=== PATIENT | female | born 1990 | race Hispanic/Latino ===

== ENCOUNTER 2016-10-08 00:47 | Emergency (ER) | payer SELFPAY ==
[2016-10-08] MEDS ORDERED: Valium 5 MG PO ONE (00:57)
[2016-10-08] MEDS ORDERED: TORAdol 30 mg Injection IM ONE (00:57)
--- NOTE | 2016-10-08 01:04 | ERPHSYRPT ---
- History of Present Illness Time Seen by Provider: 10/08/16 00:49 Source: patient, family Exam Limitations: language barrier Physician History: patient presents with "toothache" and cant open mouth due to pain left TMJ; no hx of trauma; no difficulty swallowing or breathing; no fever; no prior hx; no pain with clenching teeth only when tries to open; also noted two small lumps right breast; no traum; not breast feeding; no d/d Timing/Duration: gradual onset, this evening (worse), yesterday (onset) Severity: moderate ENT Location: facial (left TMJ) Prearrival Treatment: no prearrival treatment Modifying Factors: Improves With: other (opening mouth exacerbates) Associated Symptoms: jaw pain (left TMJ) - Review of Systems Constitutional: No Symptoms Eyes: No Symptoms Ears, Nose, & Throat: Other (pain left TMJ if tries opening mouth), No Ear Pain , No Hearing Changes, No Tinnitus, No Nose Pain, No Epistaxis, No Mouth Pain, No Mouth Swelling, No Loose Teeth, No Throat Pain, No Painful Swallowing Respiratory: No Cough, No Dyspnea, No Wheezing Cardiac: No Chest Pain, No Palpitations, No Syncope Abdominal/Gastrointestinal: No Abdominal Pain, No Nausea, No Vomiting, No Diarrhea Genitourinary Symptoms: No Symptoms Musculoskeletal: Joint Pain (left TMJ), Other (lumps right breast x 2), No Injury, No Joint Redness Skin: No Symptoms Neurological: No Symptoms Psychological: No Symptoms - Past Medical History Pertinent Past Medical History: No - Past Surgical History Past Surgical History: No - Social History Smoking Status: Never smoker Exposure to second hand smoke: No Alcohol Use: None Drug Use: none Patient Lives Alone: No Significant Family History: no pertinent family hx - Female History Hx Now: No - Nursing Vital Signs Nursing Vital Signs: Initial Vital Signs Temperature 98 F Temperature Source Oral Pulse Rate 84 Respiratory Rate 16 Blood Pressure [Right Arm] 120/78 Pain Intensity 6 - Physical Exam General Appearance: mild distress (pain lleft tMJ), alert Eye Exam: bilateral eye: normal inspection, PERRL, EOMI Ear Exam: bilateral ear: auricle normal, canal normal, TM normal Nasal Exam: normal inspection Throat Exam: normal, pharynx normal, moist mucus membranes, trismus (due to pain left TMJ), No dental tenderness, No excessive drooling, No foreign body, No mandibular swelling, No maxillary swelling, No tongue swollen, No uvula swelling, No voice changes Neck Exam: normal inspection, non-tender, supple, full range of motion, No JVD, No lymphadenopathy (R), No lymphadenopathy (L), No stiff neck Cardiovascular/Respiratory Exam: chest non-tender, normal breath sounds, regular rate/rhythm, heart sounds normal, no JVD, no M/R/G, no respiratory distress Abdominal Exam: non-tender, soft, no organomegaly Neurologic Exam: alert, oriented x 3, cooperative, adapted physical education specialist II-XII nml as tested, normal mood/affect, nml cerebellar function, nml station & gait Skin Exam: normal color, warm, dry, No rash Comments: checked and did breast exam; two small nodules/cystic below nipple on right breast mid nipple line; non-tender; mobile; no adenopathy axilla; normal nipple - Course Nursing assessment & vital signs reviewed: Yes Ordered Tests: Active Orders 24 hr Category Date Time Status Cold Application STAT Care 10/08/16 00:58 Active Pulse Oximetry (ED) STAT Care 10/08/16 01:05 Active Re-Check Vital Signs STAT Care 10/08/16 00:58 Active Medication Summary Discontinued Medications Generic Name Dose Route Start Last Admin Trade Name Jamesq PRN Reason Stop Dose Admin Diazepam 5 mg 10/08/16 00:57 10/08/16 01:11 Valium 5 Mg PO 10/08/16 00:58 5 mg STAT ONE Administration Diazepam Confirm 10/08/16 01:08 Valium 5 Mg Administered 10/08/16 01:09 Dose 5 mg .ROUTE .STK-MED ONE Ketorolac Tromethamine 30 mg 10/08/16 00:57 10/08/16 01:11 Toradol 30 Mg Injection IM 10/08/16 00:58 30 mg STAT ONE Administration Ketorolac Tromethamine Confirm 10/08/16 01:07 Toradol 30 Mg Injection Administered 10/08/16 01:08 Dose 30 mg .ROUTE .STK-MED ONE - Progress Progress: improved (after meds), re-examined (after meds) Progress Note: 10/08/16 01:05 will medicate and recheck 10/08/16 01:45 rechecked and pain resolivng and opens mouth well now; instructions given in azeri Counseled pt/family regarding: diagnosis, need for follow-up - Departure Time of Disposition: 01:45 Departure Disposition: Home Clinical Impression: TMJ (temporomandibular joint syndrome) Condition: Stable Critical Care Time: No Referrals: DOCTOR,NO FAMILY [Primary Care Provider] - Instructions: Temporomandibular Disorder Additional Instructions: soft diet; ice; Follow-up with family doctor as directed. Call for appointment. Return if any problems. If you smoke please stop. Call or follow up with your family doctor for assistance if you need it to stop. Please wear your seatbelt when driving. Have a nice day. Thank you for allowing us to participate in your care today. :o) Dr Jeremiah Perez Prescriptions: Diazepam 5 mg [Valium 5 MG] 5 mg PO Q8H PRN PRN #10 tablet PRN Reason: Pain Naproxen Sodium [Anaprox Ds] 550 mg PO Q6-8HPRN PRN #14 tablet PRN Reason: Pain
[2016-10-08] MEDS ORDERED: TORAdol 30 mg Injection ONE (01:07)
[2016-10-08] MEDS ORDERED: Valium 5 MG ONE (01:08)
[2016-10-08 01:15] VITALS: O2SAT 99
[2016-10-08 02:13] VITALS: BP 116/70; PULSE 80
== END 2016-10-08 02:16 | disposition home or self-care (01) ==
LOC: ED 00:47
DX: M26.602 Left temporomandibular joint disorder, unspecified (principal); N63 Unspecified lump in breast
CPT/HCPCS: 96372; 99284; J1885; A9270-GY